=== PATIENT | male | born 2005 | race Asian ===

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

== ENCOUNTER → 2025-10-06 10:52 | Outpatient (REF) | payer OTHER, SELFPAY | LOC: OHS 10:52 | PROVIDERS: ATTENDING PHYSICIAN Nurse Practitioner Family | DX: Z23 Encounter for immunization (principal) | CPT/HCPCS: 36415; 86480; 86706 ==

== ENCOUNTER 2025-10-28 18:30 | Emergency (ER) | payer BC, SELFPAY ==
[2025-10-28 18:32] VITALS: BP 127/84
--- NOTE | 2025-10-28 19:11 | ED.MUSCINJ ---
HPI-Injury
General
Chief Complaint: Musculo-Skeletal Complaint
Source: patient
Exam Limitations: none
Time Seen by Provider: 10/28/25 19:06
Nursing documentation reviewed up to this point in time: agreed with
History of Present Illness-Injury
Initial Injury comments:
20-year-old male with no significant past medical history presents with pain and swelling at the right fifth MCP joint after repeatedly hitting a boxing bag yesterday. Mild abrasion at the area.
Past History
Past History
ED Past Medical History: None
ED Past Surgical History: Orthopedic (thumb injury, ), Tonsilectomy (and adenoids) and Other (septoplasty)
Social History
Tobacco: Vaping
Alcohol: Occasional
Drug: Marijuana
Personal: Single
Living: other ([place])
Review of Systems
Review of Systems
Allergies reviewed?: Yes
All Other Systems: ROS reviewed and negative except as documented in HPI and ROS
Musculoskeletal Injury Exam
Musculoskeletal Injury Exam
Right fifth finger MCP joint:
Pain with Movement?: Mild
Tender to palpation?: Mild
Soft tissue swelling?: Mild
External deformity and angulation?: None
Contusion?: Mild
Joint instability?: No
Malalignment/deformity?: No
Range of motion: Full
Distal skin color and temperature: normal-warm & good color
Capillary Refill: normal
Normal distal neurovascular exam?: Yes
Phy Exam
Physical Exam
Physical Exam:
PHYSICAL EXAMINATION:
General: no apparent distress, not acutely ill
Neuro: alert and oriented.
Psychiatric: well kept. interactive and cooperative
Musculoskeletal: Moves with ease
Skin: Warm, pink.
Injury Course
Orders/Labs/Results
Orders:
Orders
10/28/25 18:36
Hand, Right 3 View [CR Hand - Right Min 3 Views] Urgent
Comment:
Reason For Exam: injury
MDM/Problems Addressed
Differential Diagnosis Includes:
Contusion versus fracture
MDM/Problems Addressed:
20-year-old male with no significant past medical history presents with pain and swelling at the right fifth MCP joint after repeatedly hitting a boxing bag yesterday. Mild abrasion at the area. X-ray right hand reveals no fracture. Mild soft
tissue swelling at the site.
*Pulse Oximetry
SaO2: 97
Oxygen Mode of Delivery: Room air
Patient hypoxic: not evaluated
*Critical Care Note
Total Time (30-74mins, 75-104mins- exclusive of procedures): Not Applicable
ED Attending Note
-
Portions of this chart may have been created with voice recognition software.� Occasional wrong word or��sound alike� substitutions may have occurred due to the inherent limitations of voice recognition software.
Discharge Plan
Departure
Patient Disposition: Home (Routine Discharge)
Date of Disposition: 10/28/25
Time of Disposition: 19:13
Patient with high blood pressure during this ER visit?: No
Condition: Good
Discharge Problem:
Contusion of right hand
Instructions: Contusion (DC)
Prescriptions:
No Action
fluticasone propionate [Flonase Allergy Relief] 50 mcg/actuation [place],Suspension
2 spray INTRANASAL DAILY PRN (Reason: rhinitis)
hydrocodone-acetaminophen 5-325 mg tablet
1 - 2 tab PO Q4HPRN PRN (Reason: pain) Qty: 20 0RF
ondansetron 4 mg tablet,disintegrating
4 mg PO Q8HPRN PRN (Reason: nausea) Qty: 5 1RF
cefdinir 300 mg capsule
300 mg PO BID Qty: 14 0RF
amoxicillin-pot clavulanate 875-125 mg tablet
1 tab PO BID Qty: 20 0RF
Referrals:
UNKNOWN - PT DOES,NOT KNOW [Family Provider]
Interventions
Interventions:
*Risk Screen - Suicide Last Done: 10/28/25 18:32
*General Assessment Last Done: 10/28/25 18:32
*Neglect/Abuse Screening Last Done: 10/28/25 18:32
*Nursing Disposition Last Done: 10/28/25 22:50
Discharge Date and Time
Discharge Date/Time: 10/28/25 22:50
Print Language: TURKMEN
[2025-10-28 19:16] VITALS: BP 137/81
== END 2025-10-28 22:50 | disposition home or self-care (01) ==
LOC: EMR 18:30
PROVIDERS: EMERGENCY PHYSICIAN Student in an Organized Health Care Education/Training Program
DX: S60.221A Contusion of right hand, initial encounter (principal); W22.8XXA Striking against or struck by other objects, initial encounter; Y93.71 Activity, boxing; F17.290 Nicotine dependence, other tobacco product, uncomplicated
CPT/HCPCS: 99283; 73130

== ENCOUNTER 2025-11-04 00:52 | Emergency (ER) | payer SELFPAY ==
--- NOTE | 2025-11-04 01:17 | ED.GENMED ---
History of Present Illness
General
Chief Complaint: Blood and Body Fluid Exposure
Source: patient
Exam Limitations: none
Time Seen by Provider: 11/04/25 01:19
Nursing documentation reviewed up to this point in time: agreed with
History of Present Illness
History of Present Illness:
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 Patient was taking care of a critically ill man in cardiac arrest. The man had some traumatic injuries and blood on him. While the patient
was helping to get the man from EMS stretcher onto the hospital stretcher, patient's glove broke and some of the man's blood got onto the dorsum of both patient's hands. Patient does have some chapped skin/cracked skin. He checked in to be
evaluated for this occupational exposure. Source patient testing was performed but not resulted.
Past History
Past History
ED Past Medical History: None
ED Past Surgical History: Orthopedic (thumb injury, ), Tonsilectomy (and adenoids) and Other (septoplasty)
Social History
Tobacco: Vaping
Alcohol: Occasional
Drug: Marijuana
Personal: Single
Living: other ([place])
Review of Systems
Review of Systems
All Other Systems: ROS reviewed and negative except as documented in HPI and ROS
Phy Exam
Physical Exam
Physical Exam:
General: Well appearing and non-toxic
HEENT: protecting airway
Neck: appears supple
CV: No evidence of cyanosis
Resp: No accessory muscle use
Abd: Non-distended
Extremities: No deformities
Neuro: Alert
Psych: Normal affect
Skin: Skin on the dorsum of both hands mildly dry and chapped but no gross wounds or cuts noted
Scores
Heart Failure Risk
Heart Failure Risk Score: Not Applicable
Heart Score for Chest Pain Patients
STEMI patient?: Not applicable
Withdrawal Assessment of Alcohol
Withdrawal Assessment Completed?: Not applicable
Course
Orders/Labs/Results
Orders:
Orders
11/04/25 01:18
Complete Blood Count/With Diff Urgent
Comprehensive Metabolic Panel Urgent
11/04/25 01:19
Pt has had a significant HIV exposure? Routine
HIV Exposure is significant?: Yes
HIV Combo Urgent
Hepatitis B Surface Antibody Urgent
Hepatitis B Surface Antigen Urgent
Hepatitis C Antibody Urgent
MDM/Problems Addressed
Differential Diagnosis Includes:
Occupational exposure
MDM/Problems Addressed:
20-year-old male with occupational exposure to blood as described above. Generally low risk exposure. Source patient testing sent, there was no reported history of HIV/hepatitis and the patient. Will send baseline testing�CBC, CMP, hepatitis
panel and HIV. Can start postexposure prophylaxis pending source patient testing.
*Pulse Oximetry
Patient hypoxic: no
*Critical Care Note
Total Time (30-74mins, 75-104mins- exclusive of procedures): Not Applicable
Data Reviewed
Source: patient
ED Attending Note
-
Portions of this chart may have been created with voice recognition software.� Occasional wrong word or��sound alike� substitutions may have occurred due to the inherent limitations of voice recognition software.
Discharge Plan
Departure
Discharge Problem:
Employee exposure to blood
Instructions: Exposure to HIV or hepatitis through blood or body fluids
Prescriptions:
No Action
fluticasone propionate [Flonase Allergy Relief] 50 mcg/actuation [place],Suspension
2 spray INTRANASAL DAILY PRN (Reason: rhinitis)
hydrocodone-acetaminophen 5-325 mg tablet
1 - 2 tab PO Q4HPRN PRN (Reason: pain) Qty: 20 0RF
ondansetron 4 mg tablet,disintegrating
4 mg PO Q8HPRN PRN (Reason: nausea) Qty: 5 1RF
cefdinir 300 mg capsule
300 mg PO BID Qty: 14 0RF
amoxicillin-pot clavulanate 875-125 mg tablet
1 tab PO BID Qty: 20 0RF
Referrals:
[facility] [Outside]
Stand Alone Forms: Bl/Fluid Consent/Declination, Blood Body/Fluid Exposure
Interventions
Interventions:
*General Assessment Last Done: 11/04/25 01:21
*Neglect/Abuse Screening Last Done: 11/04/25 01:21
*ED COVID-19 Vaccine History Last Done: 11/04/25 01:21
*ED Influenza Vaccine History Last Done: 11/04/25 01:21
Discharge Date and Time
Print Language: [id number]
[2025-11-04 01:21] VITALS: BP 149/95
[2025-11-04 01:39] LABS: Hematocrit 43.6 % (39.0-52.0); Hemoglobin 15.7 g/dL (13.0-18.0); Mean Corp Hgb Conc. 36.0 g/dL (33.0-37.0); Mean Corpuscular Volume 86.2 fL (80.0-94.0); Nucleated Red Blood Cells % 0 % (-); Platelet Count 324 10^3/uL (130-400); Red Cell Dist. Width 11.6 % (11.5-14.5)
[2025-11-04 01:55] LABS: ALT (SGPT) 22 U/L (0-50); AST (SGOT) 31 U/L (17-59); Albumin 5.5 g/dl (3.5-5.0); Alkaline Phosphatase 80 U/L (38-126); Blood Urea Nitrogen 20 mg/dl (9-20); Calcium 10.3 mg/dl (8.4-10.2); Carbon Dioxide 26 mmol/L (22-30); Chloride 103 mmol/L (98-107); Glucose 97 mg/dl (70-99); Potassium 4.1 mmol/L (3.5-5.1); Sodium 140 mmol/L (135-145); Total Protein 9.3 g/dl (6.3-8.2); eGFR > 60.00
[2025-11-04] MEDS: TRUVADA TABLET 1 TABLET PO (02:01)
[2025-11-04] MEDS: ISENTRESS 400 MG PO (02:01)
[2025-11-04 05:03] LABS: Hepatitis B Surface Antigen Negative (Negative)
[2025-11-04 05:21] LABS: Hepatitis C Antibody Negative (Negative)
== END 2025-11-04 03:39 | disposition home or self-care (01) ==
LOC: EMR 00:52
PROVIDERS: EMERGENCY PHYSICIAN Emergency Medicine
DX: Z77.21 Contact with and (suspected) exposure to potentially hazardous body fluids (principal); F17.290 Nicotine dependence, other tobacco product, uncomplicated
CPT/HCPCS: 99283; 80053; 85025; 86706; 86803; 87340; 87389